=== PATIENT | female | born 1995 | race Hispanic/Latino ===

== ENCOUNTER 2018-02-12 20:43 | Emergency (ER) | payer OTHER ==
[~2018-02-12] VITALS: Ht 165.1 cm; Wt 66.9 kg
[2018-02-12 22:39] VITALS: BP 120/80
== END 2018-02-12 22:47 | disposition home or self-care (01) ==
LOC: FSED 20:43
DX: R10.31 Right lower quadrant pain (principal); K59.00 Constipation, unspecified
CPT/HCPCS: 71046; 74022; 81003; 81025; 99283

== ENCOUNTER 2021-05-08 21:11 | Emergency (ER) | payer BC, OTHER ==
[~2021-05-08] VITALS: Ht 165.1 cm; Wt 72.6 kg
[2021-05-08] MEDS ORDERED: CEFTRIAXONE 1 GM VIAL IM ONE (22:30)
[2021-05-08] MEDS ORDERED: CEFTRIAXONE 1 GM VIAL ONE (22:57)
[2021-05-08] MEDS ORDERED: CEFDINIR300 MG PO (23:00)
== END 2021-05-08 23:35 | disposition home or self-care (01) ==
LOC: FSED 22:24
DX: J02.9 Acute pharyngitis, unspecified (principal)
CPT/HCPCS: 83518; 99283; J0696